=== PATIENT | female | born 1960 | race Caucasian/White ===

== ENCOUNTER 2019-04-19 11:23 | Day surgery (SDC) | payer OTHER ==
--- OUTSIDE RECORDS SUMMARY | 2019-04-19 11:38 | XMS REPORT | Summary of Care ---
:1960 Author Organization [facility] Address [address] [place] [id number] Care Team Providers Name Role Phone Gerry Denny Primary Care Provider Reason for Referral Radiology Services (KRISTINE) Status Reason Specialty Diagnoses / Referred By Referred To Procedures Contact Contact Closed Diagnostic Diagnoses Postmenopausal bleeding Kadiyala, Radiology Procedures US TRANSVAGINAL MD Jenni [address] [place] [id number] Radiology Services (KRISTINE) Status Reason Specialty Diagnoses / Referred By Referred To Procedures Contact Contact Closed Diagnostic Diagnoses Postmenopausal bleeding Kadiyala, Radiology Procedures US TRANSVAGINAL MD Jenni [address] [place] [phone] Reason for Visit Radiology Services (KRISTINE) Status Reason Specialty Diagnoses / Referred By Referred To Procedures Contact Contact Closed Diagnostic Diagnoses Postmenopausal bleeding Kadiyala, Radiology Procedures US TRANSVAGINAL MD Jenni [address] [place] [id number] Encounter Details Date Type Department Care Team Description 04/06/2019 Hospital Encounter [facility] Jenni Jeong Arrived [facility] [address] [place] [address] [place] [phone] B [phone] [place] [address] [phone] Allergies Not on Filedocumented as of this encounter (statuses as of 04/07/2019) Medications Not on filedocumented as of this encounter (statuses as of 04/07/2019) Active Problems Not on filedocumented as of this encounter (statuses as of 04/07/2019) Social History Tobacco Use Types Packs/Day Years Used Date Never Assessed Sex Assigned at Date Recorded Not on file Job Start Date Occupation Industry Not on file Not on file Not on file Travel History Travel Start Travel End No recent travel history available. documented as of this encounter Last Filed Vital Signs Not on filedocumented in this encounter Plan of Treatment Health Maintenance Due Date Last Done Comments HEPATITIS C (HCV) SCREEN 1960 DTaP,Tdap,and Td Vaccines (1 - 1979 Tdap) PAP SMEAR 1981 MAMMOGRAM 2000 COLONOSCOPY 2010 Zoster Recombinant Vaccine 2010 (SHINGRIX) (1 of 2) INFLUENZA VACCINE (#1) 2019 PNEUMOCOCCAL 0-64 YEARS COMBINED Aged Out No longer eligible based on SERIES patient's age to complete this topic documented as of this encounter Procedures Procedure Name Priority Date/Time Associated Diagnosis Comments US TRANSVAGINAL KRISTINE 04/06/2019 4:34 Postmenopausal Results for this PM CDT bleeding procedure are in the results section. [facility] PATIENT FINANCIAL Routine 04/06/2019 3:38 POLICY PM CDT NO SHOW OR MISSED Routine 04/06/2019 3:38 APPOINTMENT POLICY PM CDT ACKNOWLEDGEMENT NOTICE OF PRIVACY Routine 04/06/2019 3:37 PRACTICES PM CDT CONSENT/REFUSAL FOR Routine 04/06/2019 3:36 DIAGNOSIS AND TREATMENT PM CDT ASSIGNMENT OF BENEFITS Routine 04/06/2019 3:35 PM CDT documented in this encounter Results US TRANSVAGINAL (04/06/2019 4:34 PM CDT) Specimen Impressions Performed At PACS/VR/DOSE 1.Heterogeneous appearing uterus containing vascular mass in close proximity to/displacing the endometrium (thought to be separate). Endometrial echocomplex measures 5 mm. Differential considerations include large submucosal fibroid, endometrial polyp, or endometrial carcinoma. Recommend TREAS[employer]Y MANAGEMENT SALES CONSULTANT consultation and dedicated pelvic MRI to further characterize. 2.Right hydrosalpinx. 3.Right ovarian cyst. Narrative Performed At * * * * * * * * ORIGINAL REPORT * * * * * * * * PACS/VR/DOSE PELVIC ULTRASOUND (TRANSVAGINAL AND LIMITED TRANSABDOMINAL) TECHNIQUE: Transvaginal and limited transabdominal sonography of the pelvis was performed. INDICATION: Postmenopausal bleeding since July 2018. COMPARISON: None available. FINDINGS: Heterogeneous appearing anteflexed uterus measures 7.3 x 3.7 x 4.7 cm. The uterus fundus contains a 2.4 x 1.6 x 2.6 cm subendometrial/submucosal heterogeneous mass thought to be separate from the adjacent endometrium (cine series 6). The mass demonstrates prominent vascularity on Doppler images. The endometrial stripe appears displaced by space-occupying process and measures 5 mm in thickness. Although, evaluation is somewhat limited due to close proximity of the adjacent mass to the endometrium. Nabothian cysts are seen within the cervix. Right ovary measures 2.0 x 1.3 x 1.8 cm and contains a 1.2 cm cyst. Right hydrosalpinx is also present. Left ovary is not visualized and per history is surgically absent. Trace fluid is seen within the cul-de-sac. Procedure Note [facility], Radiant Results Inft User - 04/06/2019 5:08 PM CDT * * * * * * * * ORIGINAL REPORT * * * * * * * * PELVIC ULTRASOUND (TRANSVAGINAL AND LIMITED TRANSABDOMINAL) TECHNIQUE: Transvaginal and limited transabdominal sonography of the pelvis was performed. INDICATION: Postmenopausal bleeding since July 2018. COMPARISON: None available. FINDINGS: Heterogeneous appearing anteflexed uterus measures 7.3 x 3.7 x 4.7 cm. The uterus fundus contains a 2.4 x 1.6 x 2.6 cm subendometrial/submucosal heterogeneous mass thought to be separate from the adjacent endometrium (cine series 6). The mass demonstrates prominent vascularity on Doppler images. The endometrial stripe appears displaced by space-occupying process and measures 5 mm in thickness. Although, evaluation is somewhat limited due to close proximity of the adjacent mass to the endometrium. Nabothian cysts are seen within the cervix. Right ovary measures 2.0 x 1.3 x 1.8 cm and contains a 1.2 cm cyst. Right hydrosalpinx is also present. Left ovary is not visualized and per history is surgically absent. Trace fluid is seen within the cul-de-sac. IMPRESSION 1. Heterogeneous appearing uterus containing vascular mass in close proximity to/displacing the endometrium (thought to be separate). Endometrial echocomplex measures 5 mm. Differential considerations include large submucosal fibroid, endometrial polyp, or endometrial carcinoma. Recommend TREAS[employer] MANAGEMENT SALES CONSULTANT consultation and dedicated pelvic MRI to further characterize. 2. Right hydrosalpinx. 3. Right ovarian cyst. Performing Organization Address City/State/Zipcode Phone Number PACS/VR/DOSE documented in this encounter Visit Diagnoses Diagnosis Postmenopausal bleeding documented in this encounter documented as of this encounter
--- OUTSIDE RECORDS SUMMARY | 2019-04-19 11:38 | XMS REPORT ---
:1960 Author Organization [facility] Address [address] [place] [address] [place] [id number] Care Team Providers Name Role Phone Unavailable Unavailable Unavailable Problems This patient has no known problems. Allergies, Adverse Reactions, Alerts This patient has no known allergies or adverse reactions. Medications This patient has no known medications.
--- OUTSIDE RECORDS SUMMARY | 2019-04-19 11:38 | XMS REPORT ---
:1960 Author Organization [employer] Care Team Providers Name Role Phone Mina Garcia Provider Role Unavailable Allergies, Adverse Reactions, Alerts Substance Reaction Event Type Sudafed Info Not Available Drug Allergy Actifed Info Not Available Drug Allergy Problems Problem Type Condition Code Onset Dates Condition Status Problem Primary osteoarthritis of right M17.11 Active knee Problem Primary osteoarthritis of left knee M17.12 Active Assessment Primary osteoarthritis of right M17.11 Active knee Assessment Primary osteoarthritis of left knee M17.12 Active Assessment Pain, joint, knee, right M25.561 Active Assessment Pain, joint, knee, left M25.562 Active Medications Medication Code System Code Instructions Start Date End Date Status Dosage Valsartan [facility] [address] Active not defined -93 Results No Known Results Summary Purpose [employer] Submission
[2019-04-19] MEDS ORDERED: Ringers Lactate 1,000 ML IV ONE (11:50)
[2019-04-19] MEDS ORDERED: NA CHLORIDE 0.9% 1,000 ML ONE (13:56)
[2019-04-19] MEDS ORDERED: SILVER NITRATE 1 APPL TOP ONE (13:56)
[2019-04-19] MEDS ORDERED: FENTANYL CITR 100 MCG/2 ML ONE (14:25)
[2019-04-19] MEDS ORDERED: PROPOFOL 200 MG/20 ML VIAL IV ONE ×2 (14:25→15:05)
[2019-04-19] MEDS ORDERED: MIDAZOLAM HCL 2 MG/2 ML INJ ONE (14:25)
[2019-04-19] MEDS ORDERED: LIDOCAINE 2% MPF 5 ML VIAL ONE (14:25)
[2019-04-19] MEDS: LIDOCAINE 1% W/EPI 1:100,000 MDV 20 ML VIAL ONE ×2 (14:26→15:02)
[2019-04-19] MEDS ORDERED: ESMOLOL HCL 10 ML IV ONE (15:09)
[2019-04-19 15:46] VITALS: BP 130/64; TEMP 98.1; O2SAT 99
--- NOTE | 2019-04-20 10:35 | OP ---
Date of Procedure: 04/19/2019 Surgeon: Jenni Pandey MD Preoperative Diagnosis: Postmenopausal bleeding. Postoperative Diagnoses: Postmenopausal bleeding and endometrial polyps. Procedure Performed: Hysteroscopy, dilation and curettage. Anesthesia: MAC plus paracervical block. Specimens: Endometrial polyps and curettings. Complications: No complications. Drains: No drains. Condition: Stable. Findings: There were multiple polyps found in the endometrial canal, filling almost the entire endom etrial cavity. It was difficult to visualize the tubal ostia and there was adequate sampling perform ed. Description Of Procedure: The patient was taken back to the OR, placed in the supine fashion on the operating table. MAC was given. Paracervical block was given with 1% lidocaine mixed with 1:100,000 epinephrine at 12 o'clock and 4 and 8 o'clock positions of the cervicovaginal junction; 8, 6, 6 cc w ere injected at the respective sites. Prep x3 with Betadine was done. Slimline diagnostic hysterosc ope was used to perform the hysteroscopy. Cavity visualization was done. Polyps were seen in the en tire cavity. The scope was pulled out. Blane forceps was used to grasp all these polyps, as many polyps as possible and curettings were performed with a medium curette. The patient tolerated the pr ocedure well. Her cervix had to be dilated slightly in order for me to get my scope. Instrument, ne edle, and sponge counts were done and were correct at the end of the case. EBL was minimal. She will have a 1-week followup. Findings have been discusse d with her . CARLOS/ANTONETTE Voice ID: [id number] Report ID: [id number]
== END 2019-04-19 16:27 | disposition home or self-care (01) ==
LOC: OR 11:23
PROVIDERS: ATTEND Obstetrics & Gynecology
PROC: 0UJD8ZZ Inspection of Uterus and Cervix, Via Natural or Artificial Opening Endoscopic (ICD-10-PCS; 2019-04-19)
PROC: 0UDB7ZX Extraction of Endometrium, Via Natural or Artificial Opening, Diagnostic (ICD-10-PCS; principal; 2019-04-19 14:00)
DX: N95.0 Postmenopausal bleeding (principal); N84.0 Polyp of corpus uteri; R35.0 Frequency of micturition; I10 Essential (primary) hypertension; M19.90 Unspecified osteoarthritis, unspecified site; Z88.0 Allergy status to penicillin; Z88.2 Allergy status to sulfonamides; Z88.8 Allergy status to other drugs, medicaments and biological substances; Z90.721 Acquired absence of ovaries, unilateral; Z80.0 Family history of malignant neoplasm of digestive organs; Z82.49 Family history of ischemic heart disease and other diseases of the circulatory system
CPT/HCPCS: 88305; 58558; J2704 ×2; J2250; J3010; J7030

== ENCOUNTER 2022-12-09 16:08 | Emergency (ER) | payer OTHER ==
--- OUTSIDE RECORDS SUMMARY | 2022-12-09 16:11 | XMS REPORT | Clinical Summary ---
:1960 Author Organization [facility] Address [address] [place] [address] Care Team Providers Name Role Phone Gerry Denny MD Unavailable Jenni Pandey MD Unavailable Wenceslao Rose MD Primary Care Provider Allergies Active Allergy Reactions Severity Noted Date Comments Triprolidine-Pseudoephedr Other (See Comments) Low 019 Allergic rxn as a ine child, unknown Egg Derived Low 05/07/2019 Red cheeks and scratchy throat Nsaids (Non-Steroidal GI Intolerance Low 05/07/2019 Exce pt for aspirin Anti-Inflammatory Drug) Peanut Low 05/07/2019 Lip swelling, itchy/red skin Penicillin Other (See Comments) Low 05/07/2019 delusio ns Guaifenesin Diarrhea Low 05/07/2019 Pseudoephedrine Hcl Other (See Comments) Low 05/07/2019 Childhood, unsure of reaction Sulfa (Sulfonamide Other (See Comments), Low 05/07/2019 Antibiotics) Rash Triprolidine Hives, Itching Low 05/07/2019 Medications Medication Sig Dispensed Refills Start Date End Date Status ferrous sulfate 325 mg Take 325 mg by 0 Active (65 mg elemental iron mouth daily. per tablet) tablet multivitamin Take 1 tablet by 0 Active (multivitamin) tablet mouth daily. zinc gluconate 50 mg Take 50 mg by 0 Active tablet mouth daily. apbxchgt-cuotgchoyeg-u Take by mouth 0 Active iet cb25 116-100 mg daily. cap peg 3350-electrolytes Use as directed by 4000 mL 0 0 Active (Golytely) ordering provider. 236-22.74-6.74 g solutionIndications: Colonoscopy planned valsartan (DIOVAN) 320 daily. 0 03/01/2020 Active mg tablet ECHINACEA ORAL Take 1 tablet by 0 Active mouth 3 (three) times a day. melatonin 3 mg tablet Take 3 mg by mouth 0 Active at bedtime. nystatin (MYCOSTATIN) Apply topically to 30 g 0 1 Active 100,000 units/g affected area(s) creamIndications: as needed (yeast Candidiasis of skin rash of the inguinal folds). Active Problems Problem Noted Date History of malignant neoplasm of endometrium 0 Screening colonoscopy 11/15/2019 Overview: Added automatically from request for suman chapman [id number] Essential (primary) hypertension 05/07/2019 Malignant neoplasm of endometrium 05/04/2019 Cancer Staging: Clinical stage from 06/01: Stage IB (Primary) - Signed by Wenceslao Rose MD on 06/19/2019 Encounters Date Type Specialty Care Team Description 03/29/2022 Telephone Surgical Oncology Becca Kohli RN 12/10/2021 Telephone Gynecology Gladys Saavedra PA after 12/09/2021 Surgical History Surgery Date Site/Laterality Comments CARDIAC SURGERY patent ductus ar teriosis repair as an inf ant LAPAROSCOPIC SALPINGO 08/01/1983 - Left OOPHORECTOMY 07/31/1984 DILATION AND CURETTAGE OF 04/19/2019 UTERUS BREAST LUMPECTOMY right chest wa ll-benign EYE SURGERY 08/01/1997 - Right benign mole dana jordon 07/31/1998 MS COLONOSCOPY FLX DX 01/28/2020 N/A Procedure: DIAGNOSTIC W/COLLJ SPEC WHEN PFRMD FLEXIBLE COLONOSCOPY PROXIMAL TO SPLE LINDEN FLEXURE; Surgeon: Girish Crump MD; Location: [facility]; Service: GASTROE NTEROLOGY Medical History Medical History Date Comments Hypertension September 2018 Allergic rhinitis 2002 Unspecified lump in unspecified breast 2006 Menopause 2007 Abnormal uterine bleeding unrelated to menstrual cycle Decem 2017 Polycystic ovarian syndrome 1984 Arthritis January 2019 Suicide attempt 1979 Hysterectomy planned 05/29/2019 Family History Medical History Relation Name Comments Throat cancer Father Florentino Fong -Unknown cancer Paternal Grandfather Mina Fong Relation Name Status Comments Father Florentino Fong Paternal Grandfather Mina Fong Social History Tobacco Use Types Packs/Day Years Used Date Smoking Tobacco: Never Smokeless Tobacco: Never Alcohol Use Standard Drinks/Week Comments Yes 0 (1 standard drink = 0.6 oz pure alcoho l) Sex Assigned at Date Recorded Not on file Job Start Date Occupation Industry Not on file Not on file Not on file Obstetrics History Para Term AB IAB SAB Ectopic Multiple Living Live Births 0 0 0 0 0 0 0 0 0 0 0 Last Filed Vital Signs Not on file Plan of Treatment Health Maintenance Due Date Last Done Comments COVID-19 Vaccination (3 - Booster for 03/06/2021 01/09/2021 , 12/19/2020 Pfizer series) Results Not on fileafter 12/09/2021 Care Teams Senior Telecommunications Consultant Relationship Specialty Start Date End Date Gerry Denny PCP - External Primary Family Practice 04/30/19 MD Jose Care Provider [address] [place] [address] Jenni Pandey PCP - External Obstetrics/Gynecology 04/30/19 MD Francisco Referring [address] [facility] [address] [place] [address] Wenceslao Rose MD PCP - General Gynecological Oncology 04/30/[address] [place] [address]
--- OUTSIDE RECORDS SUMMARY | 2022-12-09 16:11 | XMS REPORT | Continuity of Care Document ---
:1960 Author Organization [facility] t Address [address] [place] [address]. [address] [place] [address] Care Team Providers Name Role Phone [phone] Primary Care Physician Unavailable KHOI CHEW Attending Clinician Unavailable YIN PERLA Attending Clinician Unavailable Becca Kohli RN Attending Clinician Gladys Aparicio Attending Clinician Only, Ang Db Test Attending Clinician Unavailable David Villalta Attending Clinician DAVID VILLALPANDO Attending Clinician Unavailable Therapy, Clc Covid Infusion Attending Clinician Unavailable Dave London MD Attending Clinician DAVE LONDON Attending Clinician Unavailable Doctor Unassigned, [place] Attending Clinician Unavailable Rene Thorpe RN Attending Clinician Unavailable Elmer Guillermo RN Attending Clinician Unavailable MAURA PAUL Attending Clinician Unavailable Maura Patel Attending Clinician TAMMY KRAMER Attending Clinician Unavailable Tao Lopez MD Attending Clinician Only, Adc Test Attending Clinician Unavailable Lab, Adc Fam Pob I Attending Clinician Unavailable BEN MANN Attending Clinician Unavailable CAROLINE NESS Attending Clinician Unavailable BILL SCHAFFER Attending Clinician Unavailable GABY STEPHEN Attending Clinician Unavailable Jenni Pandey MD Attending Clinician CAROLINE NESS Admitting Clinician Unavailable Payers Payer Name Policy Type Policy Number Effective Date Expiration Date S charly GENERIC [id number] 2019 00:00:00 [employer] HMO [id number] 2018 2019 00:00:00 00:00:00 COMMERCIAL [id number] 2019 NON-CONTRACT 00:00:00 GENERIC [employer]ET[employer] PPO II [id number] 2018 00:00:00 Problems Condition Condition Condition Status Onset Resolution Last Treating Co mments Source Name Details Category Date Date Treatment Clinician Date History of History of Disease Active U nivers malignant malignant 7-30 ity of neoplasm neoplasm 00:00: [place] of of 00 MD [facility] Screening Screening Disease Active Overview: Univers colonoscop colonoscop 4-16 Formattin ity of y y 00:00: g of this 00 note MD might be Fabiola morrison n from the Cancer original. Center Added automatic ally from request for surgery [id number] Essential Essential Disease Active 2018-08 Uni vers (primary) (primary) 0-07 ity of hypertens[place] [facility] Malignant Malignant Disease Active 2018-08 Uni vers neoplasm neoplasm 0-04 ity of of of 00:00: [place] jailyn endometrrakesh 00 MD tej [facility] No known No known Disease Metho di active active st problems problems Hospit a l Primary Primary Diagnosis Active Commo n osteoarthr osteoarthr Sp velia itis of itis of - [facility] right knee right knee [facility] Primary Primary Diagnosis Active Commo n osteoarthr osteoarthr Sp velia itis of itis of - [facility] left knee left knee [facility] Pain, Pain, Diagnosis Active Common joint, joint, Spirit knee, knee, - [facility] right right [facility] Pain, Pain, Diagnosis Active Common joint, joint, [facility] knee, left knee, [facility] Allergies, Adverse Reactions, Alerts Allergy Allergy Status Severity Reaction(s) Onset Inactive Treating Comm ents Source Name Type Date Date Clinician PENICILL DRUG Active Low Other 2018-08 MD IN INGREDI 0-07 Anderso 00:00: n 00 GUAIFENE DRUG Active Low Diarrhea 2018-08 MD SIN INGREDI 0-07 Anderso 00:00: n 00 PSEUDOEP DRUG Active Low Other 2018-08 MD HEDRINE INGREDI 0-07 Anderso HCL 00:00: n 00 EGG DRUG Active Low Unknown-Cmnt 2018-08 Univ ers INGREDI 0-07 ity of 00:00: [place] 00 Medical Branch GUAIFENE DRUG Active Low Diarrhea 2018-08 Univer s SIN INGREDI 0-07 ity of 00:00: [place] 00 Medical Branch NSAIDS Drug Active Low N/V 2018-08 Univers (NON-DAVID Class 0-07 ity of ROIDAL 00:00: [place] ANTI-INF 00 Medical LAMMATOR Branch Y DRUG) SULFA Drug Active Low Other 2018-08 (SULFONA Class 0-07 Anderso MIDE 00:00: n ANTIBIOT 00 ICS) PEANUT DRUG Active Low Swelling 2018-08 Univers INGREDI 0-07 ity of 00:00: [place] 00 Medical Branch PENICILL DRUG Active Low Other-Cmnt 2018-08 Univ ers IN INGREDI 0-07 ity of 00:00: [place] 00 Medical Branch PSEUDOEP DRUG Active Low Other-Cmnt 2018-08 Univ ers HEDRINE INGREDI 0-07 ity of HCL 00:00: [place] 00 Medical Branch SULFA Drug Active Low Other-Cmnt 2018-08 Univer s (SULFONA Class 0-07 ity of MIDE 00:00: [place] ANTIBIOT 00 Medical ICS) Branch TRIPROLI DRUG Active Low Hives 2018-08 Univers DINE INGREDI 0-07 ity of 00:00: [place] 00 Medical Branch TRIPROLI DRUG Active Low Other-Cmnt 2018-08 Univ ers DINE-PSE 0-07 ity of UDOEPHED 00:00: [place] RINE 00 Medical Branch Egg Propensi Active Unknown - 2018-08 Red Unive rs ty to See comments 0-07 cheeks ity of adverse 00:00: and [place] reaction 00 scratchy Medica l s throat Branch Nsaids Propensi Active Nausea 2018-08 Except Univers (Non-David ty to and/or 0-07 for ity of roidal adverse Vomiting 00:00: aspirin [place] Anti-Inf reaction 00 Medica l lammator s Branch y Drug) TRIPROLI DRUG Active Low Hives 2018-08 MD ORR INGREDI 0-07 Anderso 00:00: n 00 Sulfa Propensi Active Rash 2018-08 Univers (Sulfona ty to 0-07 ity of mide adverse 00:00: [place] Antibiot reaction 00 Medica l ics) s Branch TRIPROLI DRUG Active Low Other 2018-08 MD DINE-PSE 0-07 Anderso UDOEPHED 00:00: n RINE 00 EGG Drug Active Low 2018-08 MD DERIVED Class 0-07 Anderso 00:00: n 00 Pseudoep Propensi Active Other (See 2018-08 Childhood Univers hedrine ty to Comments) 0-07 , unsure ity of Hcl adverse 00:00: of [place] reaction 00 reaction MD clara jaramillo [facility] Sulfa Propensi Active Rash 2018-08 Univers (Sulfona ty to 0-07 ity of mide adverse 00:00: [place] Antibiot reaction 00 ics) clara [facility] Triproli Propensi Active Itching 2018-08 Unive rs dine ty to 0-07 ity of adverse 00:00: [place] reaction 00 MD clara jaramillo [facility] Triproli Propensi Active Other (See 2018-08 Allergic Univers dine-Pse ty to Comments) 0-07 rxn as a ity of udoephed adverse 00:00: child, [place] rine reaction 00 unknown MD clara jaramillo [facility] NSAIDS Drug Active Low Nausea 2018-08 MD (NON-DAVID Class 0-07 Anderso ROIDAL 00:00: n ANTI-INF 00 LAMMATOR Y DRUG) Egg Propensi Active 2018-08 Red Univers Derived ty to 0-07 cheeks ity of adverse 00:00: and [place] reaction 00 scratchy MD [facility] Nsaids Propensi Active GI 2018-08 Except Univers (Non-David ty to Intolerance 0-07 for ity of roidal adverse 00:00: aspirin [place] Anti-Inf reaction 00 MD packer s Anderso y Drug) n [facility] Peanut Propensi Active 2018-08 Lip Univers ty to 0-07 swelling, ity of adverse 00:00: itchy/red [place] reaction 00 skin MD clara jaramillo [facility] Penicill Propensi Active Other (See 2018-08 delusions Univers in ty to Comments) 0-07 ity of adverse 00:00: [place] reaction 00 MD clara jaramillo [facility] Guaifene Propensi Active Diarrhea 2018-08 Univ ers sin ty to 0-07 ity of adverse 00:00: [place] reaction 00 MD [facility] PEANUT DRUG Active Low 2018-08 MD CORREA 0-07 Anderso 00:00: n 00 NO KNOWN Drug Active Univers ALLERGIE Class ity of S [facility] Sudafed Adverse Active Info Not Common Reaction Available [facility] Actifed Adverse Active Info Not Common Reaction Available [facility] Family History Family Member Diagnosis Comments Start Date Stop Date Source Natural father Throat cancer Univers it of [facility] Paternal grandfather -Unknown cancer [facility] [place] [facility] Social History Social Habit Start Date Stop Date Quantity Comments Source Exposure to [facility] SARS-CoV-2 (event) [facility] Gender identity [facility] Alcohol intake 2021-04-24 2021-04-24 Current drinker Unive rsity of 00:00:00 00:00:00 of alcohol [place] MD Rivas son (finding) [facility] Tobacco use and 2019-05-07 2019-05-07 Smokeless Universit y of exposure 00:00:00 00:00:00 tobacco non-user [facility] Sex Assigned At [birth year] Islam 00:00:00 00:00:00 Hospital Smoking Status Start Date Stop Date Source [facility] Medications Ordered Filled Start Stop Current Ordering Indication Dosage Frequency Signature Comments Components Source Medication Medication Date Date Medication? Clinician (SIG) Name Name casirivimab 2020-08- No [id number] 1200mg 1,200 mg, Univers 600 09-06 IV ity of mg-imdevima 19:15: 18:00 Infusion, [place] b 600 mg 00 :00 ONCE, Medical (1200 mg) Administer Bran ch in 60 mL NS over 20 MINI-BAG Minutes, On Tue07/06/21 at 1315, For 1 dose
Ad d 1 vial of casirivima b 600 mg/imdevim ab 600 mg to 50 mL of NS to administer . Admi nister as an IV infusion via pump or gravity through an intravenou s line containing a sterile, in-line or add-on 0.2-micron polyethers ulfone (PES) filter.&nb sp;Stable 36 hours refrigerat ed; 4 hours at room temperatur e. &nbs p;
ferrous Yes 325mg Take 325 Unive rs sulfate 325 9-24 mg by ity of mg (65 mg 14:12: mouth [place] elemental 48 daily. iron per Anderso tablet) n tablet [facility] multivitami Yes 1{tbl} Take 1 Un odalys n 9-24 tablet by ity of (multivitam 14:12: mouth [place] in) tablet 48 daily. MD Fabiola jaramillo [facility] [place] zinc Yes 50mg Take 50 mg Univers gluconate 9-24 by mouth ity of 50 mg 14:12: daily. [place] tablet 48 MD Fabiola jaramillo [facility] [place] glucosam-ch Yes Take by Uni vers ondroitin-d 9-24 mouth ity of iet cb25 14:12: daily. [place] 116-100 mg 48 MD naila jaraimllo [facility] [place] ECHINACEA Yes 1{tbl} Take 1 Univ ers ORAL 9-24 tablet by ity of 14:12: mouth 3 [place] 48 (three) MD times a Andyaneth day. n [facility] melatonin 3 Yes 3mg Take 3 mg U nivers mg tablet 9-24 by mouth ity of 14:12: at [place] 48 bedtime. MD Fabiola jaramillo [facility] [place] nystatin Yes Candidiasis Apply U nivers (MYCOSTATIN 9-24 of skin topically ity of ) 100,000 00:00: to [place] units/g 00 affected cream area(s) as Anddonald needed n (yeast Cancer rash of Center the inguinal folds). No known No No known Metho di medications 6-[address] 08:20: s [facility] l valsartan Yes daily. Univer s (DIOVAN) 8 ity of 320 mg 00:00: [place] tablet 00 MD [facility]iola [facility] peg Yes Colonoscopy Use as Univ ers 3350-electr 6-22 planned directed i ty of olytes 00:00: by [place] (Royal) 00 ordering [id number] provider. And yanetho .74 g n solution [facility] Valsartan Valsartan Yes Mina not Co mmon Garcia defined [facility] Immunizations Ordered Immunization Filled Immunization Date Status Commen ts Source Name Name PFIZER COVID-19 MRNA 2021-01-09 Completed [facility]-19 MRNA 2021-01-09 Completed Meth odist VACCINATION [facility] PFIZER COVID-19 MRNA 2020-12-19 Completed Meth odist VACCINATION 00:00:00 [facility] PFIZER COVID-19 MRNA 2020-12-19 Completed Meth odist VACCINATION 00:00:00 Hospital Vital Signs Vital Name Observation Time Observation Value Comments Source Systolic blood 2021-07-06 18:50:00 147 mm[Hg] Univer sity of pressure [facility] Diastolic blood 2021-07-06 18:50:00 74 mm[Hg] Unive rsity of [facility] Heart rate 2021-07-06 18:50:00 68 /min [facility] Body temperature 2021-07-06 18:50:00 36.5 Abbie [facility] Respiratory rate 2021-07-06 18:50:00 18 /min [facility] Oxygen saturation in 2021-07-06 18:50:00 97 /min [facility] Arterial blood by [facility] Pulse oximetry Branch Body height 2021-07-06 17:33:00 160 cm [facility] Body weight 2021-07-06 17:33:00 92.534 kg [facility] BMI 2021-07-06 17:33:00 36.14 kg/m2 [facility] WEIGHT 2019-11-15 00:00:00 101.8 kg Procedures Procedure Date / Time Performed Performing Clinician Sour e CONSENT/REFUSAL FOR 2021-07-06 06:01:00 Doctor Unassigned, No Un [facility] DIAGNOSIS AND Name Medical [place] TREATMENT Plan of Care Planned Activity Planned Date Details Comments Source Future Scheduled 2022-12-06 COVID-19 Vaccination Uni versity of [place] Test 11:07:39 (3 - Booster for MD [facility] Pfizer series) [code Center = COVID-19 Vaccination (3 - Booster for Pfizer series)] Future Scheduled 2022-12-04 COLONOSCOPY SCREENING [facility] Test 04:13:40 [code = COLONOSCOPY SCREENING] Future Scheduled 2022-12-04 SHINGLES VACCINES (1 [facility] Test 04:13:40 of 2) [code = SHINGLES VACCINES (1 of 2)] Future Scheduled 2022-12-04 COVID-19 VACCINE (3 - [facility] Test 04:13:40 Booster for Pfizer series) [code = COVID-19 VACCINE (3 - Booster for Pfizer series)] Future Scheduled 2022-12-04 INFLUENZA VACCINE [facility] Test 04:13:40 [code = INFLUENZA VACCINE] Future Scheduled 2022-12-04 Screening for [facility] Test 04:13:40 malignant neoplasm of cervix (procedure) [code = 733015499] Future Scheduled 2022-12-04 BREAST CANCER [facility] Test 04:13:40 SCREENING [code = BREAST CANCER SCREENING] Future Scheduled 2021-07-16 Hepatitis C screening [facility] Test 09:57:38 (procedure) [code = 364669597] Future Scheduled 2021-07-16 Screening for [facility] Test 09:57:38 malignant neoplasm of cervix (procedure) [code = 031882177] Future Scheduled 2021-07-16 [facility]CER [facility] Test 09:57:38 SCREENING [code = BREAST CANCER SCREENING] Future Scheduled 2021-07-16 [facility] Test 09:57:38 [code = COLONOSCOPY SCREENING] Future Scheduled 2021-07-16 SHINGLES VACCINES [facility] Test 09:57:38 (#1) [code = SHINGLES VACCINES (#1)] Future Scheduled 2021-07-16 INFLUENZA VACCINE [facility] Test 09:57:38 [code = INFLUENZA VACCINE] Future Scheduled 2021-07-16 COVID-19 VACCINE (3 - [facility] Test 09:57:38 Booster for Pfizer series) [code = COVID-19 VACCINE (3 - Booster for Pfizer series)] Encounters Start End Encounter Admission Attending Care Care Encounter Source Date/Time Date/Time Type Type Clinicians Facility Department ID 2020-01-28 Outpatient NAINA FROYLAN GALEANO [id number] 15:15:28 KHOI jaramillo 2020-01-28 Outpatient MINDA FROYLAN GALEANO [id number] 07:35:08 YIN jaramillo 2020-01-28 Outpatient MINDA FROYLAN GALEANO [id number] 07:35:08 YIN [place] jaramillo 2022-03-29 2022-03-29 Telephone Seun 1.2.840.1 [id number] Univers 00:00:00 00:00:00 Becca Bedoya 05444.1.1 it y of 3.412.2.7 [place] .3.542640 .8 [facility] 2021-12-10 2021-12-10 Telephone Gladys Saavedra 1.2.840.1 [id number] Univers 00:00:00 00:00:00 91617.1.1 ity of 3.412.2.7 [place] .3.324019 .8 [facility] 2021-07-12 2021-07-12 Laboratory Only, Ang Db Test [facility] 1.2.8 40.114 [id number] Univers 09:41:05 09:56:05 Only David Villalpando [facility] 350.1.13.10 ity of [place] 4.2.7.2.686 Mika as NICK?BLEA [phone] Al judy WONG [address] [place] MEDICAL OFFICE BUILDING 2021-07-12 2021-07-12 Outpatient R FLOR [facility] [id number] Univers 10:00:00 09:44:24 DAVID bates o f [facility] 2021-07-06 2021-07-06 Nurse Therapy, Clc Covid Infusion [facility] 1.2.840.114 [id number] Univers 11:25:37 12:25:37 Visit Dave London [facility] [id number] ity of [place] 4.2.7.2.686 [place] [phone] [place] [id number] Branch OFFICE BUILDING 2021-07-06 2021-07-06 Outpatient R CARINA [facility] [id number] Univers 11:30:00 11:30:00 DAVE y [facility] 2021-07-06 2021-07-06 Orders Doctor CASSI 1.2.840.114 [id number] Univers 00:00:00 00:00:00 Only Unassigned, ELYSSA 350.1.13.[address] [place] [facility] 4.2.7.2.686 Mika as [phone] [address] 2021-07-03 2021-07-03 Telephone CASSI Thorpe [id number] [id number] Univers 00:00:00 00:00:00 Quzach YUNGY 350.1.13.[address] [facility] 4.2.7.2.686 Mika as [id number] [address] 2021-07-03 2021-07-03 Telephone CASSI Guillermo 1.2.840.114 [id number] Univers 00:00:00 00:00:00 Elmerdorys BERGERON 350.1.13.[address] [facility] 4.2.7.2.686 Mika as [phone] [address] 2021-07-02 2021-07-02 [facility] [id number] Univers 14:00:00 15:14:32 [facility] 2021-07-02 2021-07-02 Laboratory Only, Ang Db Test [facility] 1.2.8 40.114 [id number] Univers 14:23:55 14:38:55 Only Joshua [facility] 350.1.13.10 ity [facility] 4.2.7.2.686 Mika as NICK?BLEA [phone] [address] MEDICAL OFFICE BUILDING 2021-04-24 2021-04-24 Outpatient DALE KRAMER [facility] [id number] 13:50:21 13:50:21 TAMMY jaramillo 2021-01-09 2021-01-09 Clinical Septimus, 1.2.840.1 [id number] Methodi 08:14:32 08:50:19 Support Tao Mohan 59618.1.[address] 3.430.2.7 Hospit a .3.674749 l .8 2021-01-09 2021-01-09 Travel 1.2.840.1 1.2.813.861 [id number] Methodi 00:00:00 00:00:[address] 3.430.2.7 0.2.7.3.698 Ho spita .3.991725 084.8 l .8 2020-12-19 2020-12-19 Clinical 1.2.840.1 [id number] Methodi 15:52:59 16:03:[address] 3.430.2.7 Hospit a .3.873400 l .8 2020-12-19 2020-12-19 Travel 1.2.840.1 1.2.754.802 [id number] Methodi 00:00:00 00:00:[address] 3.430.2.7 0.2.7.3.698 Ho spita .3.365120 084.8 l .8 2020-07-21 2020-07-21 Laboratory Only, [facility] 1.2.840.114 [id number] 08:52:54 09:07:54 Only Test [place] 350.1.13.10 Alvin 4.2.7.2.686 [place] [id number] [id number] 2020-07-21 2020-07-21 Outpatient R [facility] [id number] Univers 08:30:00 08:30:00 [facility] 2020-07-01 2020-07-01 Laboratory Lab, [facility] 1.2.840.114 [id number] 11:34:30 11:54:30 Only Fam Pob I Health 350.1.13.10 [place] 4.2.7.2.686 [facility] [phone] nal [address] 2020-07-01 2020-07-01 Outpatient R MACKENZIE [facility] [id number] Univers 11:40:00 11:40:00 BEN [facility] 2020-02-19 2020-02-19 Laboratory Lab, Adc [facility] 1.2.840.114 [id number] 14:43:23 15:03:23 Only Fam Pob I [facility] 350.1.13.10 [place] 4.2.7.2.686 Jose M [phone] nal [address] 2020-02-19 2020-02-19 Outpatient R [facility] [id number] Univers 15:00:00 15:00:00 ity [facility] 2020-02-19 2020-02-19 Letter Doctor CASSI 1.2.840.114 [id number] 00:00:00 00:00:00 (Out) Unassigned, ELYSSA 350.1.13.[address] [place] [facility] 4.2.7.2.686 [id number] 2020-01-28 2020-01-28 Outpatient DALE NESS [facility] Loree/Hep/Nu 1 [id number] 07:02:58 09:46:00 CAROLINE jaramillo 2020-01-28 2020-01-28 Outpatient DALE SCHAFFER [facility] [id number] 06:56:26 07:01:59 BILL jaramillo 2020-01-25 2020-01-25 Outpatient DALE KRAMER [facility] [id number] 13:18:46 15:55:29 TAMMY jaramillo 2020-01-25 2020-01-25 Outpatient DALE KRAMER [facility] [id number] 07:56:05 07:56:05 TAMMY jaramillo 2019-11-16 2019-11-16 Outpatient [facility] [id number] [address] [place] [address] 00:00:00 00:00:[address] GABY [address] 2019-05-29 2019-05-29 Outpatient [facility] [id number] [facility] 10:06:00 10:06:00 2019-04-06 2019-04-[address] [facility] [address] 1.2.840.114 [id number] 15:34:17 23:59:00 Encounter Jenni Waters 350.1.13.10 [place] 4.2.7.2.686 [place] [id number] 2019-02-19 2019-02-19 Outpatient [id number] Common 08:00:00 08:00:00 t [facility] Results This patient has no known results.
[2022-12-09] MEDS ORDERED: KETOROLAC 30 MG/ML INJ ONE (16:44)
--- NOTE | 2022-12-09 17:18 | RAD REPORT ---
EXAM DESCRIPTION: RAD - Elbow Right 3 View - 12/09/2022 4:58 pm CLINICAL HISTORY: PAIN COMPARISON: Shoulder Right 2 View dated 12/09/2022; Wrist Right 3 View dated 12/09/2022 FINDINGS/IMPRESSION: Possible nondisplaced radial head fracture. Correlate with site of pain. No mal alignment. Olecranon spurring. Spurring at the medial epicondyle .
--- NOTE | 2022-12-09 17:18 | RAD REPORT ---
EXAM DESCRIPTION: RAD - Wrist Right 3 View - 12/09/2022 4:58 pm CLINICAL HISTORY: PAIN COMPARISON: No comparisons FINDINGS/IMPRESSION: No acute fracture. No malalignment. Radiocarpal joint space narrowing. Degenera tive changes of the base of the thumb .
--- NOTE | 2022-12-09 17:21 | RAD REPORT ---
EXAM DESCRIPTION: RAD - Hip Right 2 View - 12/09/2022 4:58 pm CLINICAL HISTORY: PAIN COMPARISON: No comparisons FINDINGS: No acute fracture. No malalignment. Right SI joint and pubic symphysis degenerative change s. Mild right acetabular degenerative changes. IMPRESSION: No acute osseous abnormality involving the right hip.
--- NOTE | 2022-12-09 17:28 | RAD REPORT ---
EXAM DESCRIPTION: RAD - Ribs Right - 12/09/2022 4:58 pm CLINICAL HISTORY: TRAUMA COMPARISON: CHEST PA AND LAT 2 VIEW dated 03/15/2011 FINDINGS/IMPRESSION: No displaced right-sided rib fractures identified. No pneumothorax. Nondisplace d rib fractures may not be apparent on radiography until healing begins.
--- NOTE | 2022-12-09 17:29 | RAD REPORT ---
EXAM DESCRIPTION: RAD - Shoulder Right 2 View - 12/09/2022 4:58 pm CLINICAL HISTORY: PAIN COMPARISON: No comparisons FINDINGS/IMPRESSION: No acute fracture. No malalignment. Moderate right AC joint degenerative change s.
--- NOTE | 2022-12-09 17:44 | EDPHYS ---
Physician Documentation [facility] Name: Yarely Mackenzie Age: 62 yrs Sex: Female : 1960 Arrival Date: 12/09/2022 Time: 16:08 Bed 12 Private MD: SHEA Physician Dianna Patel HPI: 12/09 16:32 This 62 yrs old Female presents to ER via Ambulatory with complaints of Fall Injury. sd2 16:32 62-year-old female presents with a chief complaint of right-sided pain following a sd2 fall. 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 She denies any significant head injury or loss of consciousness. She complains of pain to her right wrist, elbow, shoulder, ribs and hip areas. She has been ambulatory since the accident and did take 1 aspirin prior to arrival for pain. She reports that NSAIDs and Tylenol make her nauseous when she takes them. She does not have any significant true allergies to these medications however.. Historical: - Allergies: 16:16 Sulfa (Sulfonamide Antibiotics); iw 16:16 PENICILLINS; iw 16:16 NSAIDS; iw 16:16 Sudafed; iw 16:16 amlodipine; iw - Home Meds: 16:16 valsartan 320 mg oral tablet daily [Active]; lovastatin Oral [Active]; iw - PMHx: 16:16 Hypertensive disorder; Hypercholesterolemia; endometrial cancer; iw - PSHx: 16:16 open heart surgery as a baby; hysterectomy; ovary removed; iw ROS: 16:32 Constitutional: Negative for fever, chills, and weight loss, Eyes: Negative for injury, sd2 pain, redness, and discharge, Cardiovascular: Negative for chest pain, palpitations, and edema, Respiratory: Negative for shortness of breath, cough, wheezing. Abdomen/GI: Negative for abdominal pain, nausea, vomiting, diarrhea. 16:32 MS/Extremity: Positive for injury and negative for deformity Skin: Negative for injury, rash, and discoloration, Neuro: Negative for headache, numbness and tingling. 16:32 Back: Negative for injury or acute deformity, pain at rest, pain with movement. Exam: 16:32 Constitutional: This is a well developed, well nourished patient who is awake, alert, sd2 and in no acute distress. Head/Face: Normocephalic, atraumatic. Eyes: EOMI, normal conjunctiva bilaterally Chest/axilla: Normal chest wall appearance and motion. Nontender with no deformity. Cardiovascular: Regular rate and rhythm with a normal S1 and S2. No gallops, murmurs, or rubs. 2+ distal pulses. Respiratory: Lungs have equal breath sounds bilaterally, clear to auscultation and percussion. No rales, rhonchi or wheezes noted. No increased work of breathing, no retractions or nasal flaring. Abdomen/GI: Soft, non-tender, with normal bowel sounds. No guarding or rebound. No evidence of tenderness throughout. Back: No spinal tenderness. No costovertebral tenderness. Full range of motion. Skin: Warm, dry with normal turgor. Normal color with no rashes, no lesions, and no evidence of cellulitis. MS/ Extremity: Pulses equal, no cyanosis. Neurovascular intact. Full, normal range of motion. Ambulatory without difficulty. TTP and with ROM for R wrist, elbow, shoulder, lateral thoracic ribs and hip. Psych: Awake, alert, with orientation to person, place and time. Behavior, mood, and affect are within normal limits. Vital Signs: 16:15 BP 158 / 77; Pulse 81; Resp 16; Temp 97.2; Pulse Ox 97% on R/A; Weight 95.25 kg; Height iw 5 ft. 3 in. ; Pain 5/10; 16:15 Body Mass Index 37.20 (95.25 kg, 160.02 cm) iw 16:15 Pain Scale: Adult iw Procedures: 18:20 Splinting: Splint applied to right arm using sling, posterior splint. applied by chintan myself. tech. Examined by me, post splint application: neurovascular intact, 2+ distal pulses palpable, brisk capillary refill noted, Patient tolerated well. MDM: 16:30 Patient medically screened. sd2 16:32 Differential diagnosis: Differential diagnosis includes but is not limited to: sd2 Fracture, contusion, abrasion, closed head injury, pneumothorax, intra-abdominal injury, intracranial hemorrhage, spinal injury among others. Data reviewed: vital signs, nurses notes, radiologic studies, plain films. I considered the following discharge prescriptions or medication management in the emergency department Medications were administered in the Emergency Department. See SEP. 17:38 Independent interpretation of the following test(s) in the Emergency Department X-Ray: sd2 My interpretation is No obvious fracture, possible non-displaced radial head fracture clinically correlated with tenderness on exam. Historians other than the Patient: Spouse/Significant Other: provides further history. Counseling: I had a detailed discussion with the patient and/or guardian regarding: the historical points, exam findings, and any diagnostic results supporting the discharge/admit diagnosis, radiology results, the need for outpatient follow up, to return to the emergency department if symptoms worsen or persist or if there are any questions or concerns that arise at home. Response to treatment: the patient's symptoms have mildly improved after treatment. ED course: Imaging reviewed with no significant acute injuries noted. There is a possible nondisplaced radial head fracture. The patient does have tenderness at the site of this area so a splint and sling was placed in an abundance of precaution. The patient will follow-up outpatient with orthopedics regarding this injury for further evaluation. She will also be placed in a sling and the shoulder can also be further evaluated for rotator cuff injury with Ortho as well. Pain well controlled and pt comfortable with plan for discharge and outpatient follow up at this time. Verbalizes understanding of strict return precautions. . 12/09 16:32 Order name: XRAY Wrist RIGHT 3 view; Complete Time: 17:30 sd2 12/09 16:32 Order name: XRAY Elbow RIGHT 3 view; Complete Time: 17:30 sd2 12/09 16:32 Order name: XRAY Shoulder RIGHT 2 view; Complete Time: 17:30 sd2 12/09 16:32 Order name: XRAY Ribs RIGHT; Complete Time: 17:30 sd2 12/09 16:32 Order name: XRAY Hip RIGHT 2 view; Complete Time: 17:30 sd2 12/09 17:38 Order name: Splint - Elbow - Posterior; Complete Time: 18:13 sd2 12/09 17:38 Order name: Sling; Complete Time: 18:13 sd2 Administered Medications: 16:40 Drug: Ketorolac IM 60 mg Route: IM; Site: left deltoid; ld1 Disposition Summary: 12/09/22 17:44 Discharge Ordered Location: Home sd2 Problem: new sd2 Symptoms: have improved sd2 Condition: Stable sd2 Diagnosis - Fall from standing sd2 - Right Wrist Pain sd2 - Closed right nondisplaced radial head fracture sd2 - Right shoulder pain sd2 - Right rib pain sd2 - Right hip pain sd2 Followup: sd2 - With: Private Physician - When: 1 week - Reason: Recheck today's complaints, Continuance of care, Re-evaluation by your physician Followup: kj1 - With: Celestino Smith MD - When: 2 - 3 days - Reason: Recheck today's complaints, Continuance of care Discharge Instructions: - Discharge Summary Sheet sd2 - Musculoskeletal Pain sd2 - Radial Head Fracture sd2 Forms: - Medication Reconciliation Form sd2 - Thank You Letter sd2 - Antibiotic Education sd2 - Prescription Opioid Use sd2 Addendum: 12/11/2022 19:06 Co-signature as Attending Physician, Dianna Patel MD I reviewed the patient's care s d2 provided by Advanced Practice Provider \T\ agree w/ the diagnosis \T\ care plan. I personally saw the pt \T\ performed a substantive portion of the visit, incldng all aspects of the (History/Exam/Medical Decision Making). Signatures: Dispatcher [employer] EDLeonardo Pack PA PA jmm Williams, Irene, RN RN iw Sims, Lauren, RN RN ld1 Dianna Patel MD MD sd2
--- NOTE | 2022-12-09 17:44 | ER ---
Nurse's Notes [facility] Name: Yarely Mackenzie Age: 62 yrs Sex: Female : 1960 Arrival Date: 12/09/2022 Time: 16:08 Bed 12 Private MD: Diagnosis: Fall from standing;Right Wrist Pain;Closed right nondisplaced radial head fracture;Right shoulder pain;Right rib pain;Right hip pain Presentation: 12/09 16:14 Chief complaint: Patient states: tripped and fell forward, landed on right side, has iw pain to right shoulder, wrist and elbow, also has pain to right hip. 16:14 Acuity: GERMAIN 4 iw 16:14 Method Of Arrival: Ambulatory iw 16:15 Coronavirus screen: At this time, the client does not indicate any symptoms associated iw with coronavirus-19. Ebola Screen: Patient negative for fever greater than or equal to 101.5 degrees Fahrenheit, and additional compatible Ebola Virus Disease symptoms Patient denies exposure to infectious person. Patient denies travel to an Ebola-affected area in the 21 days before illness onset. No symptoms or risks identified at this time. Initial Sepsis Screen: Does the patient meet any 2 criteria? No. Patient's initial sepsis screen is negative. Does the patient have a suspected source of infection? No. Patient's initial sepsis screen is negative. Risk Assessment: Do you want to hurt yourself or someone else? Patient reports no desire to harm self or others. Onset of symptoms was December 09, 2022. Historical: - Allergies: 16:16 Sulfa (Sulfonamide Antibiotics); iw 16:16 PENICILLINS; iw 16:16 NSAIDS; iw 16:16 Sudafed; iw 16:16 amlodipine; iw - Home Meds: 16:16 valsartan 320 mg oral tablet daily [Active]; lovastatin Oral [Active]; iw - PMHx: 16:16 Hypertensive disorder; Hypercholesterolemia; endometrial cancer; iw - PSHx: 16:16 open heart surgery as a baby; hysterectomy; ovary removed; iw Vital Signs: 16:15 BP 158 / 77; Pulse 81; Resp 16; Temp 97.2; Pulse Ox 97% on R/A; Weight 95.25 kg; Height iw 5 ft. 3 in. ; Pain 5/10; 16:15 Body Mass Index 37.20 (95.25 kg, 160.02 cm) iw 16:15 Pain Scale: Adult iw ED Course: 16:09 Patient arrived in ED. rg4 16:10 Dianna Patel MD is Attending Physician. sd2 16:15 Triage completed. iw 16:59 XRAY Wrist RIGHT 3 view In Process Unspecified. EDMS 17:00 XRAY Elbow RIGHT 3 view In Process Unspecified. EDMS 17:00 XRAY Shoulder RIGHT 2 view In Process Unspecified. EDMS 17:00 XRAY Ribs RIGHT In Process Unspecified. EDMS 17:00 XRAY Hip RIGHT 2 view In Process Unspecified. EDMS 17:43 Celestino Smith MD is Referral Physician. sd2 17:48 Tonya Mccormack, RN is Primary Nurse. iw 17:49 Leonardo Corcoran PA is PHCP. m Administered Medications: 16:40 Drug: Ketorolac IM 60 mg Route: IM; Site: left deltoid; ld1 Outcome: 17:44 Discharge ordered by . sd2 18:24 Patient left the ED. iw Signatures: Dispatcher [employer] EDMS Leonardo Corcoran PA PA jmTonya Lawson RN RN Sharon Lopez rg4 Bren Gusman RN RN ld1 Dianna Patel MD MD sd2 Corrections: (The following items were deleted from the chart) 16:18 16:15 Pulse 81bpm; Resp 16bpm; Pulse Ox 97% RA; Temp 97.2F; 95.25 kg; Height 5 ft. 3 iw in.; BMI: 37.2; Pain 5/10, Adult; iw
[2022-12-09 18:28] VITALS: BP 158/77; TEMP 97.2; O2SAT 97
== END 2022-12-09 18:24 | disposition home or self-care (01) ==
LOC: ER 16:08
DX: S52.124A Nondisplaced fracture of head of right radius, initial encounter for closed fracture (principal); M25.511 Pain in right shoulder; M25.551 Pain in right hip; R07.81 Pleurodynia; W19.XXXA Unspecified fall, initial encounter
CPT/HCPCS: 96372; 99284